=== PATIENT | female | born 1995 | race Caucasian/White ===

== ENCOUNTER 2021-07-23 08:20 | Emergency (ER) | payer OTHER ==
[~2021-07-23] VITALS: Ht 165.1 cm; Wt 57.1 kg
[2021-07-23] MEDS ORDERED: VYVANSE70 MG PO (08:37)
[2021-07-23] MEDS ORDERED: PROAIR HFA8.5 GM INH (09:36)
[2021-07-23] MEDS ORDERED: TESSALON PERLE100 MG PO (09:36)
[2021-07-23 09:42] VITALS: BP 122/75
--- NOTE | 2021-07-24 07:13 | EKG ---
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 : 1995 Requested By: Gaston Bolivar Order Number: [id number] MD: Homar Patel Measurements Intervals [place] Rate: 97 P: -16 NM: 119 QRS: 41 QRSD: 82 T: 34 QT: 328 QTc: 417 Interpretive Statements Sinus rhythm Borderline short NM interval RSR' in V1 or V2, right VCD or RVH No previous ECG available for comparison Electronically Signed On 07-24-2021 7:13:39 SPREADING MACHINE OPERATOR by Homar Patel [email or web address] <ELECTRONICALLY SIGNED> By: Homar Patel MD, [facility] 07/24/21 0713 0828 0828 Homar Patel MD, FACLilian /EPI
== END 2021-07-23 10:45 | disposition home or self-care (01) ==
LOC: ER 08:20
DX: J40 Bronchitis, not specified as acute or chronic (principal); Z20.822 Contact with and (suspected) exposure to COVID-19; Z79.899 Other long term (current) drug therapy; Z88.0 Allergy status to penicillin